=== PATIENT | female | born 1955 | race Caucasian/White ===

== ENCOUNTER 2021-07-14 11:06 | Observation (INO) ==
--- NOTE | 2021-07-10 14:05 | Anesthesiology Consultation ---
Date of Service July 10, 2021 Assessment & Plan (1) Encounter for pre-operative examination: Chart Review Chart Review: entry level marketing representative initiated History Surgery Operation Date: 07/14/21 12:05 Proposed Procedures p Colonoscopy Dr. Jesus Lee, Height/Weight Height: 5 ft 5 in Weight: 66.678 kg Allergies Allergy/AdvReac Type Severity Reaction Status Date / Time No Known Allergies Allergy Verified 07/09/21 08:43 Medications Home Medications Medication Instructions Recorded Confirmed Last Taken biotin 5 mg capsule 5 mg PO QAM 12/12/20 07/09/21 Unknown cholecalciferol (vitamin D3) 25 25 mcg PO QAM 12/12/20 07/09/21 Unknown mcg (1,000 unit) capsule fluticasone propionate 50 2 spray INTRANASAL DAILY PRN 12/12/20 07/09/21 Unknown mcg/actuation nasal spray,suspension (Allergy Relief (fluticasone)) ascorbic acid-collagen [Collagen 1 dose PO QAM 06/17/21 07/09/21 Unknown Plus Vitamin C] levothyroxine 75 mcg tablet 75 mcg PO QAM 06/17/21 07/09/21 Unknown selenium 50 mcg tablet 200 mcg PO QAM tab 06/17/21 07/09/21 Unknown peg 3350-electrolytes 236 See Rx Instructions .ROUTE 06/25/21 07/09/21 Unknown gram-22.74 gram-6.74 gram-5.86 .COMPLEX #4000 ml gram solution (Golytely) [place] 1 dose PO QAM 07/09/21 07/09/21 Unknown Past Medical History Medical History Chronic kidney disease no specialist Difficulty hearing H/O Graves' disease History of anesthesia reaction woke up during last colonoscopy History of COVID-17 Jan 2021 > not hospitalized > digestive issues, severe fatigue, cough History of trigger finger with releases bilat hands Hyperlipidemia Osteoarthritis Past Family History Family History Brother Hypertension Prostate cancer Denies family history of Ovarian cancer Kidney disease Myocardial infarction Breast cancer Lung cancer Colorectal cancer Past Surgical History Surgical History H/O thyroidectomy History of arthroplasty of left knee History of colonoscopy with polypectomy at [facility] apporx 15 yrs ago Hx of abdominal surgery for tubal Tubal ligation status Social History Smoking Status: Former smoker Do You Dip or Chew Tobacco: No Smoking End Date: 20 yrs Hx Alcohol Use: Yes Alcohol type: wine alcohol intake frequency: a few times a month Hx Substance Use: No substance use type: does not use Lab Results Anesthesia Preop Results Results Anesthesia Widget: WBC 9.11 K/uL (4.8-10.8) 06/10/21 Hgb 13.3 g/dL (12.0-16.0) 06/10/21 Hct 39.8 % (37-47) 06/10/21 Plt 318 K/uL (130-400) 06/10/21 Na 139 mmol/L (136-145) 06/10/21 K 3.9 mmol/L (3.5-5.1) 06/10/21 Cl 105 mmol/L (98-107) 06/10/21 CO2 26 mmol/L (21-32) 06/10/21 BUN 23 mg/dl (6-23) 06/10/21 Creat 1.18 mg/dl (0.6-1.2) 06/10/21 Glucose Level 94 mg/dl (70-99(Fasting)) 06/10/21 TSH 0.153 uIu/ml (0.300-4.500) L 06/10/21 Free T4 1.12 ng/dl (0.61-1.60) 06/10/21
[2021-07-14] MEDS ORDERED: LIDOCAINE 2% 2 ML VIAL/AMP(20MG/ML) INFIL ONE (12:09)
[2021-07-14] MEDS ORDERED: PROPOFOL IV EMULSION 10 MG/ML 20 ML VIAL IV ONE ×2 (12:09→12:45)
--- NOTE | 2021-07-14 12:32 | History & Physical Report ---
Date of Service July 14, 2021 Assessment & Plan (1) Colon cancer screening: Plan: Proceed with colonoscopy History of Present Illness Chief Complaint: Screening Primary Care Provider: ASHLEY Lee 66 yo CF who presents for screening colonoscopy Allergies Allergy/AdvReac Type Severity Reaction Status Date / Time No Known Allergies Allergy Verified 07/14/21 11:54 Home Medications Medication Instructions Recorded Confirmed Type biotin 5 mg capsule 5 mg PO QAM 12/12/20 07/14/21 History cholecalciferol (vitamin D3) 25 25 mcg PO QAM 12/12/20 07/14/21 History mcg (1,000 unit) capsule fluticasone propionate 50 2 spray INTRANASAL DAILY PRN 12/12/20 07/14/21 History mcg/actuation nasal spray,suspension (Allergy Relief (fluticasone)) ascorbic acid-collagen [Collagen 1 dose PO QAM 06/17/21 07/14/21 History Plus Vitamin C] levothyroxine 75 mcg tablet 75 mcg PO QAM 06/17/21 07/14/21 History selenium 50 mcg tablet 200 mcg PO QAM tab 06/17/21 07/14/21 History peg 3350-electrolytes 236 See Rx Instructions .ROUTE 06/25/21 07/14/21 Rx gram-22.74 gram-6.74 gram-5.86 .COMPLEX #4000 ml gram solution (Golytely) [place] Bergamot 1 dose PO QAM 07/09/21 07/14/21 History Past Med/Surg History Medical History Chronic kidney disease no specialist Difficulty hearing H/O Graves' disease History of anesthesia reaction woke up during last colonoscopy History of COVID-17 Jan 2021 > not hospitalized > digestive issues, severe fatigue, cough History of trigger finger with releases bilat hands Hyperlipidemia Osteoarthritis Surgical History H/O thyroidectomy History of arthroplasty of left knee History of colonoscopy with polypectomy at [facility] apporx 15 yrs ago Hx of abdominal surgery for tubal Tubal ligation status Family History Brother Hypertension Prostate cancer Denies family history of Ovarian cancer Kidney disease Myocardial infarction Breast cancer Lung cancer Colorectal cancer Social History (Updated 04/15/21 @ 16:02 by Jacquelin Hare LPN) Smoking Status: Former smoker Tobacco Type: Cigarettes Smoking End Date: 20 yrs; Second Hand Exposure: No; Do You Dip or Chew Tobacco: No; Tobacco Cessation Education Requested by Patient: No Hx Alcohol Use: Yes Alcohol type: wine Alcohol Intake Frequency: Monthly or Less Hx Substance Use: No Preferred Language: Faroese Communication Ability: Effective Hearing Ability: Hard of Hearing 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 Beliefs That Will Affect Care: None marital status: Current Living Situation: Spouse current occupational status: employed How many Children do You have: 2 Other Information That Helps Us Care for You: No Feels Safe at Home: Yes Safety Concerns: Feels Safe At This Time Childhood Exposure to Second-Hand Smoke: No caffeine: Yes Dental Care, Regularly: Yes Physical Activity Frequency: 5-6 Times per Week Assistive Devices: Glasses Physical Exam Constitutional: WD/WN, vitals as above Respiratory: normal respiratory effort, lungs clear to auscultation Cardiovascular: RRR, no murmur, no edema Gastrointestinal (Abdomen): normal bowel sounds, soft, nontender, no hepatosplenomegaly Results & Data ([facility]) Vital Signs (Past 12 Hours) Vital Signs Temp Pulse Resp BP Pulse Ox 07/14/21 12:08 37.0 C 65 14 132/75 97 Coding Level of Care Code None Diagnoses Colon cancer screening Z12.11
[2021-07-14] MEDS ORDERED: SODIUM CHLORIDE 0.9% 1000ML 1,000 ML IV SCH (12:45)
--- NOTE | 2021-07-14 13:25 | GI REPORT ---
Patient Name: Khadra Perez Procedure Date: 07/14/2021 12:30 PM Date of : 1955 Admit Type: Outpatient Age: 66 Gender: Female Attending MD: Matt Lee DO Procedure: Colonoscopy Providers: Matt Lee DO Referring MD: Nalini Rodriguez Indications: Screening for colorectal malignant neoplasm Medicines: Monitored Anesthesia Care Complications: No immediate complications. Estimated Blood Loss: Estimated blood loss: 10 mL. Procedure: Pre-Anesthesia Assessment: - Prior to the procedure, a History and Physical was performed, and patient medications and allergies were reviewed. The patient's tolerance of previous anesthesia was also reviewed. The risks and benefits of the procedure and the sedation options and risks were discussed with the patient. All questions were answered, and informed consent was obtained. Prior Anticoagulants: The patient has taken no previous anticoagulant or antiplatelet agents. ASA Grade Assessment: II - A patient with mild systemic disease. After reviewing the risks and benefits, the patient was deemed in satisfactory condition to undergo the procedure. After I obtained informed consent, the scope was passed under direct vision. Throughout the procedure, the patient's blood pressure, pulse, and oxygen saturations were monitored continuously. The scope was introduced through the anus with the intention of advancing to the ileum. The scope was advanced to the sigmoid colon before the procedure was aborted. Medications were given. The colonoscopy was performed with moderate difficulty due to restricted mobility of the colon. The patient tolerated the procedure well. The quality of the bowel preparation was good. No anatomical landmarks were photographed. Findings: The perianal and digital rectal examinations were normal. A perforation was found in the sigmoid colon. This defect was small. To repair the defect, the tissue edges were approximated and one [id number] clip was successfully placed (MR conditional). Closure of the defect was successful. There was no bleeding at the end of the procedure. Multiple small-mouthed diverticula were found in the sigmoid colon. Impression: - A perforation was found in the sigmoid colon. Clip (MR conditional) was placed. - Diverticulosis in the sigmoid colon. - No specimens collected. Recommendation: - Ad[facility] the patient to [facility] for [facility] care. - NPO. - Perform a CT scan (computed tomography) of abdomen with contrast and pelvis with contrast today. - Zosyn (piperacillin tazobactam) 3.375 gm IV q 6 hr. - Discussed case with admitting hospitalist, Dr. Osorio. - Discussed case with Dr. Trent of General Surgery. - Discussed case with Dr. Krause of Radiology. Matt Kimberli Jesus, DO 07/14/2021 1:25:36 PM This report has been signed electronically. Note Initiated On: 07/14/2021 12:30 PM Number of Addenda: 0 I attest to the content of the Intraoperative Record and orders documented therein, exceptions below {[id number]}
[2021-07-14] MEDS ORDERED: PIPERACILL/TAZOBAC CONSULT ACTIVE PRN (13:40)
[2021-07-14] MEDS ORDERED: PIPERACILLIN/TAZOBACTAM 3.375 GM in DEXTROSE 5% 100 ML IV ONE (14:30)
[2021-07-14] MEDS ORDERED: ONDANSETRON INJ 2 MG/ML 2 ML VIAL ONE (14:30)
--- NOTE | 2021-07-14 15:18 | Anesthesiology Progress Note ---
Date of Service July 14, 2021 Anesthesia Post Procedure Vital Signs Vital Signs: Temp Pulse Resp BP Pulse Ox 07/14/21 15:13 82 16 142/87 H 97 07/14/21 14:44 58 L 16 140/90 97 07/14/21 14:10 67 16 144/77 H 97 07/14/21 13:40 70 16 104/87 97 07/14/21 13:24 57 L 16 142/87 H 97 07/14/21 13:09 36.7 C 62 16 150/85 H 97 07/14/21 12:08 37.0 C 65 14 132/75 97 Pain Intensity Lower Abdomen: Pain Intensity: 3 Transfer of Care Handoff Completed per policy Notes Mental Status: alert / awake / arousable and participated in evaluation Patient Amnestic to Procedure: Yes Nausea / Vomiting: adequately controlled Pain: adequately controlled Airway Patency, RR, SpO2: stable & adequate BP & HR: stable & adequate Hydration State: stable & adequate Anesthetic Complications: no major complications apparent and Pt Satisfied with anesthetic care
[2021-07-14] MEDS ORDERED: ACETAMINOPHEN 1,000 MG/100 ML VIAL IV PRN (16:00)
[2021-07-14 16:27] LABS: Basophils # (auto) 0.04 K/uL (0-0.2); Basophils % (auto) 0.7 %; Eosinophils % (auto) 1.7 %; Hematocrit (blood only) 39.5 % (37-47); Hemoglobin 13.1 g/dL (12.0-16.0); Immature Granulocytes # (auto) 0.01 K/uL (0.00-0.02); Immature Granulocytes % (auto) 0.2 %; Lymphocytes % (auto) 22.2 %; Mean Corpuscular Hemoglobin 29.4 pg (25-34); Mean Corpuscular Volume 88.8 fL (80-100); Mean Platelet Volume 10.4 fL (7.4-10.4); Monocytes # (auto) 0.32 K/uL (0.11-0.59); Monocytes % (auto) 5.5 %; Neutrophils # (auto) 4.08 K/uL (1.4-6.5); Neutrophils % (auto) 69.7 %; Platelet Count 363 K/uL (130-400); RDW Coefficient of Variation 14.2 % (11.5-14.5); RDW Standard Deviation 46.4 fL (36.4-46.3); Red Blood Count 4.45 M/uL (4.2-5.4); White Blood Count 5.85 K/uL (4.8-10.8)
[2021-07-14 16:35] LABS: Albumin Globulin Ratio 1.4 (0.9-2); Albumin Level 4.4 gm/dl (3.4-5.0); BUN Creatinine Ratio 11.9 (10-20); Bilirubin,Total 0.5 mg/dl (0.2-1.0); Calcium 9.4 mg/dl (8.5-10.1); Creatinine Clr Calc Pharmacy 49.3 ml/min; Est GFR (African American) 67.2 ml/min; Globulin 3.1 gm/dl (2.5-4.0); Potassium 3.7 mmol/L (3.5-5.1); Total Protein 7.5 gm/dl (6.0-8.3)
[2021-07-14 16:37] LABS: Partial Thromboplastin Ratio 0.9; Prothrombin Time 10.9 Seconds (9.0-12.0)
[2021-07-14] MEDS: LACTATED RINGER'S 1,000 ML IV SCH (16:39)
[2021-07-14 16:48] LABS: Mean Corpuscular Hgb Conc 33.2 g/dL (32-36)
--- NOTE | 2021-07-14 18:14 | CT Scan Report ---
CT abd pelvis oral con only CLINICAL HISTORY: Perforation of Sigmoid colon TECHNIQUE: Helical axial images of the abdomen and pelvis were obtained. Automated dose lowering tech niques and/or adjustment according to patient size were utilized for this exam. This exam was perfor med without intravenous contrast. CT DOSE: 294.55 mGy.cm COMPARISON: None available at the time of this dictation. FINDINGS: Lower chest: No acute abnormality Liver: Unremarkable. No focal lesions are seen. Gallbladder and biliary tree: No calcified gallstones. Normal caliber wall. No intra- or extrahepatic biliary ductal dilation. Pancreas: Unremarkable, no focal lesions. Spleen: Unremarkable. Adrenals: Unremarkable. Kidneys and ureters: Unremarkable. Bladder: Unremarkable. Reproductive organs: Unremarkable. Bowel: No evidence of leakage of enteric contrast. Postsurgical changes are seen in the sigmoid colon . Lymph nodes Retroperitoneal: Unremarkable. Mesenteric: Unremarkable. Pelvic: Unremarkable. Peritoneum: A small amount of free air is seen in the pelvis compatible with history of recent perfor ation. Vessels: Unremarkable. Abdominal wall: Unremarkable. Bones: Degenerative changes in the visualized spine. IMPRESSION: No leakage of enteric contrast is seen to suggest continuing perforation. A small amount of free air is seen in the pelvis compatible with recent perforation. ACT 112: Negative or not required by law. Electronically signed by: Paramjit Benitez M.D. 07/14/2021 6:12 PM
--- NOTE | 2021-07-14 18:27 | History & Physical Report ---
Date of Service July 14, 2021 Assessment & Plan (1) Bowel perforation: Plan: Start Zosyn 3.375g every 8 hourly for prophylaxis. Lactate 0.8. N.p.o. LR @ 100 ml/hr CT with oral contrast to assess for extravasation -if any extravasation present will consult surgery Consult gastroenterology (2) Chronic kidney disease: Plan: At baseline. (3) Hypothyroidism (acquired): Plan: TSH level was in May. We did reducing her treatment to her outpatient providers since this is not acute and previously assessed by her primary care provider Continue levothyroxine 75 mcg p.o. daily Plan: VTE prophylaxis - deferred in the setting of bowel perforation Diet -n.p.o. Disposition -observation status to [facility] telemetry Admission and Anticipated Discharge Date Admission Date: July 14, 2021 History of Present Illness Chief Complaint: Bowel perforation during routine colonoscopy Primary Care Provider: ASHLEY Lee Kassidy Perez is a 66-year-old female who is being admitted post routine screening colonoscopy due to perforation during the procedure. Padlock clip placed during the procedure. The patient is feeling well after the procedure. No fevers or chills, abdominal distention, abdominal pain, nausea, vomiting, change in bowels. Allergies Allergy/AdvReac Type Severity Reaction Status Date / Time No Known Allergies Allergy Verified 07/14/21 11:54 Home Medications Medication Instructions Recorded Confirmed Type biotin 5 mg capsule 5 mg PO QAM 12/12/20 07/14/21 History cholecalciferol (vitamin D3) 25 25 mcg PO QAM 12/12/20 07/14/21 History mcg (1,000 unit) capsule fluticasone propionate 50 2 spray INTRANASAL DAILY PRN 12/12/20 07/14/21 History mcg/actuation nasal spray,suspension (Allergy Relief (fluticasone)) ascorbic acid-collagen [Collagen 1 dose PO QAM 06/17/21 07/14/21 History Plus Vitamin C] levothyroxine 75 mcg tablet 75 mcg PO QAM 06/17/21 07/14/21 History selenium 50 mcg tablet 200 mcg PO QAM tab 06/17/21 07/14/21 History peg 3350-electrolytes 236 See Rx Instructions .ROUTE 06/25/21 07/14/21 Rx gram-22.74 gram-6.74 gram-5.86 .COMPLEX #4000 ml gram solution (Golytely) [place] Bergamot 1 dose PO QAM 07/09/21 07/14/21 History Past Med/Surg History Medical History Chronic kidney disease no specialist Difficulty hearing H/O Graves' disease History of anesthesia reaction woke up during last colonoscopy History of COVID-17 Jan 2021 > not hospitalized > digestive issues, severe fatigue, cough History of trigger finger with releases bilat hands Hyperlipidemia Osteoarthritis Surgical History H/O thyroidectomy History of arthroplasty of left knee History of colonoscopy with polypectomy at [facility] apporx 15 yrs ago Hx of abdominal surgery for tubal Tubal ligation status Family History Brother Hypertension Prostate cancer Denies family history of Ovarian cancer Kidney disease Myocardial infarction Breast cancer Lung cancer Colorectal cancer Social History (Updated 04/15/21 @ 16:02 by Jacquelin Hare LPN) Smoking Status: Never smoker Tobacco Type: Cigarettes Smoking End Date: 20 yrs; Second Hand Exposure: No; Do You Dip or Chew Tobacco: No; Tobacco Cessation Education Requested by Patient: No Hx Alcohol Use: No Hx Substance Use: No Preferred Language: Armenian Communication Ability: Effective Hearing Ability: Hard of Hearing 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 Beliefs That Will Affect Care: None marital status: Current Living Situation: Spouse Current Living Situation Comment: Lives with at home current occupational status: employed How many Children do You have: 2 Other Information That Helps Us Care for You: No Feels Safe at Home: Yes Safety Concerns: Feels Safe At This Time Childhood Exposure to Second-Hand Smoke: No caffeine: Yes Dental Care, Regularly: Yes Physical Activity Frequency: 5-6 Times per Week Assistive Devices: Glasses Review of Systems Review of Systems: All systems reviewed & are unremarkable except as noted in HPI & below Physical Exam Constitutional: WD/WN, vitals as above Eyes: + anicteric sclerae; normal pupil size Respiratory: normal respiratory effort, lungs clear to auscultation Cardiovascular: RRR, no murmur, no edema Gastrointestinal (Abdomen): normal bowel sounds, soft, nontender, no hepatosplenomegaly Musculoskeletal: no cyanosis or clubbing, extremities motor strength 5/5 Skin: no rashes, warm and dry Neurologic: moves all extremities and awake; not confused Psychiatric: A+Ox3, euthymic affect Results & Data Results & Data ([facility]) Vital Signs (Past 12 Hours) Vital Signs Temp Pulse Pulse Resp BP Pulse Ox 07/14/21 17:48 68 07/14/21 16:01 36.5 C 77 16 156/94 H 92 07/14/21 15:37 66 16 158/84 H 97 07/14/21 15:13 82 16 142/87 H 97 07/14/21 14:44 58 L 16 140/90 97 07/14/21 14:10 67 16 144/77 H 97 07/14/21 13:40 70 16 104/87 97 07/14/21 13:24 57 L 16 142/87 H 97 07/14/21 13:09 36.7 C 62 16 150/85 H 97 07/14/21 12:08 37.0 C 65 14 132/75 97 Laboratory Results Abnormal lab results 07/14/21 Range/Units 16:03 RDW Std Deviation 46.4 H (36.4-46.3) fL Code Status & VTE Plan Code Status Full VTE Prophylaxis Plan VTE Prophylaxis will be ordered: No PG Care Time/CCT Total # of Minutes Spent Total Time Spent with Patient: Total time spent is greater than 50% in coordination of care (as documented) at patient's floor/unit and/or counseling patient: Coding Level of Care Code INT OBSERVATION CARE 50M LVL 2 Diagnoses Bowel perforation K63.1 Chronic kidney disease N18.9 Hypothyroidism (acquired) E03.9
[2021-07-14] MEDS: PIPERACILLIN/TAZOBACTAM 3.375 GM in DEXTROSE 5% 100 ML IV SCH (19:20)
[2021-07-15] MEDS: LACTATED RINGER'S 1,000 ML IV SCH ×2 (02:44→16:59)
[2021-07-15] MEDS: PIPERACILLIN/TAZOBACTAM 3.375 GM in DEXTROSE 5% 100 ML IV SCH ×2 (03:13→12:31)
[2021-07-15] MEDS ORDERED: LEVOTHYROXINE SODIUM 75 MCG TABLET PO SCH (06:30)
[2021-07-15 09:32] LABS: Basophils # (auto) 0.01 K/uL (0-0.2); Basophils % (auto) 0.1 %; Eosinophils # (auto) 0.12 K/uL (0-0.5); Eosinophils % (auto) 1.6 %; Hematocrit (blood only) 33.8 % (37-47); Hemoglobin 11.3 g/dL (12.0-16.0); Immature Granulocytes # (auto) 0.02 K/uL (0.00-0.02); Immature Granulocytes % (auto) 0.3 %; Lymphocytes # (auto) 1.54 K/uL (1.2-3.4); Lymphocytes % (auto) 21.2 %; Mean Corpuscular Hemoglobin 29.7 pg (25-34); Mean Corpuscular Hgb Conc 33.4 g/dL (32-36); Mean Corpuscular Volume 88.7 fL (80-100); Mean Platelet Volume 10.6 fL (7.4-10.4); Monocytes # (auto) 0.32 K/uL (0.11-0.59); Monocytes % (auto) 4.4 %; Neutrophils # (auto) 5.27 K/uL (1.4-6.5); Neutrophils % (auto) 72.4 %; Platelet Count 291 K/uL (130-400); RDW Coefficient of Variation 14.5 % (11.5-14.5); RDW Standard Deviation 47.2 fL (36.4-46.3); Red Blood Count 3.81 M/uL (4.2-5.4); White Blood Count 7.28 K/uL (4.8-10.8)
[2021-07-15 09:38] LABS: Albumin Globulin Ratio 1.3 (0.9-2); Albumin Level 3.5 gm/dl (3.4-5.0); BUN Creatinine Ratio 6.3 (10-20); Bilirubin,Total 0.7 mg/dl (0.2-1.0); Calcium 8.7 mg/dl (8.5-10.1); Creatinine Clr Calc Pharmacy 39.5 ml/min; Est GFR (African American) 51.4 ml/min; Est GFR (Non-African American) 44.4 ml/min; Globulin 2.8 gm/dl (2.5-4.0); Potassium 3.4 mmol/L (3.5-5.1); Total Protein 6.3 gm/dl (6.0-8.3)
[2021-07-15] MEDS ORDERED: POTASSIUM CHLORIDE CRTAB 20 MEQ TABCR PO STA (10:24)
--- NOTE | 2021-07-15 13:36 | Discharge Summary ---
Date of Service July 15, 2021 Admission HPI Per Admitting Provider Kassidy Perez is a 66-year-old female who is being admitted post routine screening colonoscopy due to perforation during the procedure. Padlock clip placed during the procedure. The patient is feeling well after the procedure. No fevers or chills, abdominal distention, abdominal pain, nausea, vomiting, change in bowels. Principal Diagnosis Sigmoid colon perforation Discharge Exam GENERAL: 66 yo well-developed, well-nourished WF. NAD. LUNGS: Clear to auscultation bilaterally. CARDIOVASCULAR: Regular rate and rhythm. ABDOMEN: Soft, non-tender and non-distended. No palpable masses. BS normal x 4 quad. No rigidity or guarding. EXTREMITIES: No edema. Non-tender. Peripheral pulses +2/4. NEUROLOGIC: A&O x3. PSYCHIATRIC: Cooperative. Appropriate mood and affect. SKIN: Warm, dry, intact. No rashes or lesions. Discharge Data Allergies Allergy/AdvReac Type Severity Reaction Status Date / Time No Known Allergies Allergy Verified 07/14/21 11:54 Consultations 07/14/21 18:21 Consult Gastroenterology Routine Procedures Performed Operation Date: 07/14/21 12:05 Actual Procedures p Colonoscopy - Matt G. Case, DO Ordered Studies Abdomen/Pelvis CT 07/14/21 13:25 CT abd pelvis oral con only CLINICAL HISTORY: Perforation of Sigmoid colon TECHNIQUE: Helical axial images of the abdomen and pelvis were obtained. Automated dose lowering techniques and/or adjustment according to patient size were utilized for this exam. This exam was performed without intravenous contrast. CT DOSE: 294.55 mGy.cm COMPARISON: None available at the time of this dictation. FINDINGS: Lower chest: No acute abnormality Liver: Unremarkable. No focal lesions are seen. Gallbladder and biliary tree: No calcified gallstones. Normal caliber wall. No intra- or extrahepatic biliary ductal dilation. Pancreas: Unremarkable, no focal lesions. Spleen: Unremarkable. Adrenals: Unremarkable. Kidneys and ureters: Unremarkable. Bladder: Unremarkable. Reproductive organs: Unremarkable. Bowel: No evidence of leakage of enteric contrast. Postsurgical changes are seen in the sigmoid colon. Lymph nodes Retroperitoneal: Unremarkable. Mesenteric: Unremarkable. Pelvic: Unremarkable. Peritoneum: A small amount of free air is seen in the pelvis compatible with history of recent perforation. Vessels: Unremarkable. Abdominal wall: Unremarkable. Bones: Degenerative changes in the visualized spine. IMPRESSION: No leakage of enteric contrast is seen to suggest continuing perforation. A small amount of free air is seen in the pelvis compatible with recent p erforation. ACT 112: Negative or not required by law. Electronically signed by: Paramjit Benitez M.D. 07/14/2021 6:12 PM Hospital Course (1) Bowel perforation: - Started Zosyn 3.375g every 8 hourly for prophylaxis. - Lactate 0.8. Pt made N.p.o. and IV fluid ordered - LR @ 100 ml/hr - CT with oral contrast to assess for extravasation - none present - An order placed to Consult gastroenterology, but they have not seen pt today - Clear liquid diet ordered, pt tolerating - D/w GI, Dr. Lee, diet advanced and if tolerating, will plan to d/c today on course of Augmentin and f/u in office - Diet advanced to low residue, she tolerated - Lactate came back this AM at 3.4, hydration continued and her lactate was repeated this afternoon, it came back normal at 0.8 (2) Chronic kidney disease: - Stable, At baseline. (3) Hypothyroidism (acquired): - TSH level was in May. We did reducing her treatment to her outpatient providers since this is not acute and previously assessed by her primary care provider - Continue levothyroxine 75 mcg p.o. daily Patient is tolerating advanced diet. Repeat lactate normalized. Will need to f/u in the office with Dr. Lee. His office will reach out to her to schedule. Pt advised to f/u with her pcp within 1 week of discharge. Above plan of care has been d/w Dr. Anthony Hill who has also seen and evaluated this patient prior to discharge and agrees with aforementioned. Total Time Total Time Spent Total Time Spent (In Minutes): <30 minutes Discharge Plan Discharge Items Patient Disposition: Home - Self-Care Reason For Visit: BOWEL PERFORATION Discharge Diagnosis: Perforation in sigmoid colon Activity: Resume your previous activity Non-emergency contact: Primary Care Provider and Collection Support Specialist Call non-emergency contact if: you have any medication questions, your symptoms worsen, your pain is not controlled and your temperature is above 101 Follow-up/Referrals: Nalini Denney CRNP [Primary Care Provider] - Diet: Low Fiber Addtl Attending Provider Instructions: You were hospitalized due to a perforation (hole) in your sigmoid colon. You were taken for a colonoscopy by Dr. Lee where the perforation was repaired with a clip and you have been placed on antibiotics to prevent infection. Since you are tolerating your diet, have no fever, or significant pain on examination, you will be discharged home with follow up with Dr. Lee in the office. His office will reach out to you to schedule the appointment. It is advised that you complete a course of antibiotics. A prescription for Augmentin 875-125mg, 1 tablet to be taken twice a day, is being sent to your pharmacy. Please make sure to take this prescription with food/snack. Note that you may experience nausea and diarrhea as a common side effect from this antibiotic. Make sure to start taking this antibiotic tonight (07/15) with dinner. In the event of any worsening symptoms including worsening abdominal pain, fever, chills, nausea or vomiting, go back to the ER for evaluation and/or contact Dr. Lee's office. We recommend that you follow up with your primary care provider within 1 week of discharge or sooner if needed. If you have any questions, please contact the nonemergency number listed on your discharge paperwork. Pending Studies at Discharge: No Stand-Alone Forms: My [facility] [employer], Smoking Cessation Medications and DC Order Prescriptions: New amoxicillin-pot clavulanate 875-125 mg tablet 1 tab PO BID Qty: 19 RF: 0 Continued peg 3350-electrolytes [Golytely] 236-22.74-6.74 -5.86 gram recon soln See Rx Instructions .Route .COMPLEX Qty: 4000 RF: 0 ascorbic acid-collagen [Collagen Plus Vitamin C] 1 dose PO QAM RF: 0 levothyroxine 75 mcg tablet 75 mcg PO QAM RF: 0 biotin 5 mg capsule 5 mg PO QAM RF: 0 cholecalciferol (vitamin D3) 25 mcg (1,000 unit) capsule 25 mcg PO QAM RF: 0 fluticasone propionate [Allergy Relief (fluticasone)] 50 mcg/actuation spray,suspension 2 spray intranasal DAILY PRN (Reason: Congestion) RF: 0 selenium 50 mcg tablet 200 mcg PO QAM RF: 0 [place] Bergamot 1 dose PO QAM RF: 0 Discharge Orders: Discharge Order (Routine); Ordered 07/15/21 Ordered By: Erika Richardson Admission Data Admit Date/Time: 07/14/21 13:45 Attending Provider: Anthony Hill Admit Provider: Mirza Osorio Primary Care Provider: Nalini Denney Other Providers: Matt Lee Other Interventions: Discharge Summary Assessment (RN) Last Done: 07/15/21 17:01 Supervising Physician Co-Signing Physician Notes I supervised Erika Richardson PA-C on the care of this patient. I interviewed and examined the patient independently of her. The plan is as written in her note except for any following changes/exceptions: None Doing well. Lactate normalized. Ready for discharge. Coding Level of Care Code 19233 OBS Care - Discharge Diagnoses Bowel perforation K63.1 Chronic kidney disease N18.9 Hypothyroidism (acquired) E03.9
--- NOTE | 2021-07-15 17:54 | Billing Data ---
Date of Service July 15, 2021 Coding Level of Care Code 68385 Inpt Consult Level 3
--- NOTE | 2021-07-15 19:31 | Consultation Report ---
GASTROENTEROLOGY CONSULTATION DATE OF CONSULTATION: 07/15/2021 SEX: Female. RACE: . ATTENDING PHYSICIAN: Dr. Mirza Osorio. CONSULTING PHYSICIAN: Matt Lee DO REASON FOR CONSULTATION: Colon perforation during colonoscopy. HISTORY OF PRESENT ILLNESS: The patient is a 66-year-old female who underwent screening co lonoscopy yesterday. During the procedure, she did have a sigmoid colon perforation as a complication of her colonoscopy. The sigmoid colon was redundant and she does have a history of surgery in the p ast involving the pelvis secondary to a tubal ligation as well as a tubal , which required a n ex-lap, and therefore questionable adhesive disease. The perforation was quickly recognized and re paired using an over the scope clip. A padlock was successfully placed and the patient did well post -procedural; however, we recommended that she be kept overnight for further evaluation and for IV ant ibiotic therapy in the event that the padlock would not be successful. I discussed the case in [facility] with Dr. Mirza Osorio of the hospitalist team who admitted her. I also spoke with Dr. Trent of General Surgery, in case that she would need any surgical intervention. A discussion was also had with Dr. Krause of Radiology, who agreed with the plan to give her oral contrast for a CT scan la ter in the day, which she underwent yesterday and there was no extravasation of contrast in the sigmo id colon, which would correspond with successful padlock closure of the colonic perforation. She was advanced to clear liquid diet and did quite well overnight without significant pain or other abnorma lities. She did tolerate p.o. intake this morning and at the time that I saw the patient, she was up walking around her room and was asking if she could be discharged today. She denied any fevers, chi lls, nausea, vomiting, hematemesis, melena, hematochezia or abdominal distention and denied any furth er complaints. PAST MEDICAL HISTORY: Significant for hypothyroidism, osteoarthritis of the right knee, chronic kidn ey disease, hyperlipidemia Graves' disease and a history of COVID-19 as well as hyperlipidemia. PAST SURGICAL HISTORY: Includes arthroplasty of the left knee, ex-lap secondary to tubal , history of thyroidectomy. ALLERGIES: None. MEDICATIONS: At home include ascorbic acid/collagen 1 tablet p.o. q.a.m., biotin 5 mg p.o. q.a.m., v itamin D3 25 mcg p.o. q.a.m., fluticasone 50 mcg 2 sprays intranasally daily as needed, levothyroxine 75 mcg daily and selenium 200 mcg p.o. q.a.m. SOCIAL HISTORY: She is . She denies any tobacco, alcohol, or illicit drug use. FAMILY HISTORY: Negative for GI malignancy or inflammatory bowel disease. PHYSICAL EXAMINATION: Includes: VITAL SIGNS: A temperature of 36.5, pulse 72, respirations 16, blood pressure 146/76 and pulse ox wa s 97% on room air. GENERAL: She is awake and cooperative, in no acute distress. HEAD: Normocephalic, atraumatic. EYES: Pupils equal, round. Extraocular muscles are intact. ENT: External evaluation of ears and nose are normal. Oropharynx is clear. NECK: Soft, supple. CHEST: Clear to auscultation bilaterally. CARDIOVASCULAR: Regular rate and rhythm. ABDOMEN: Soft, nontender, nondistended, positive bowel sounds. There is no appreciable hepatospleno megaly. EXTREMITIES: No clubbing, cyanosis or edema. LABORATORY STUDIES: Were reviewed and include a white blood cell count this morning of 7.28, hemoglo bin 11.3, hematocrit 33.8 and a platelet count of 291. Her sodium was 140, potassium 3.4, chloride 1 08, bicarbonate 23, BUN 8, creatinine 1.26. Blood glucose 145. Lactate level was 0.8, calcium 8.7, total bilirubin 0.7, AST 20, ALT 14, alkaline phosphatase 63, total protein 6.3 with an albumin at 3. 5. IMPRESSION: A 66-year-old female status post colonoscopy with complication including a sig moid colon perforation, status post repair with a padlock clip successfully closed. PLAN: At the present time, I would recommend the patient be discharged to home. I would recommend t hat she will be on Augmentin 875 mg 1 tablet p.o. b.i.d. for 10 days. I would recommend a followup c olonoscopy with a super slim scope in approximately 8 weeks to further evaluate her colon as she did not have a complete colonoscopy yesterday and will need this for screening purposes. I will ask her to follow up in our office in approximately 2 weeks to see how she is doing and she does have our off ice phone number and information. She agreed with this plan. Once again, thanks for allowing me to participate in the care of this patient. If you have any furth er questions, please do not hesitate in contacting me. Job ID: [id number]
[2021-07-15] MEDS ORDERED: PIPERACILLIN/TAZOBACTAM 3.375 GM in DEXTROSE 5% 100 ML IV SCH (20:00)
== END 2021-07-15 17:35 | disposition home or self-care (01) ==
LOC: ENDO 11:06 → 2W 11:06 → SUATTDRO 13:45